=== PATIENT | male | born 1995 | race Caucasian/White ===

== ENCOUNTER 2016-06-13 04:06 | Emergency (ER) | payer MEDICAID ==
[~2016-06-13] VITALS: Ht 177.8 cm; Wt 70.5 kg
[2016-06-13] MEDS ORDERED: DIPH,PERTUSS(ACELL),TET VAC/PF 0.5 ML IM-VACC ONE ×2 (04:30→04:34)
[2016-06-13] MEDS ORDERED: CIPROFLOXACIN 500 MG TABLET ONE (04:58)
[2016-06-13] MEDS ORDERED: CIPROFLOXACIN 500 MG TABLET PO ONE (05:00)
[2016-06-13 05:44] VITALS: BP 119/80
== END 2016-06-13 05:49 | disposition home or self-care (01) ==
LOC: ED 05:43
DX: S91.331A Puncture wound without foreign body, right foot, initial encounter (principal); Z23 Encounter for immunization; W22.8XXA Striking against or struck by other objects, initial encounter; Y93.89 Activity, other specified; Y99.8 Other external cause status; Y92.89 Other specified places as the place of occurrence of the external cause
CPT/HCPCS: 90471; 90715

== ENCOUNTER 2016-06-25 10:19 | Emergency (ER) | payer MEDICAID ==
[~2016-06-25] VITALS: Ht 177.8 cm; Wt 73.0 kg
[2016-06-25] MEDS ORDERED: SODIUM CHLORIDE 0.9% 1,000ML IVBOLUS ONE (10:30)
[2016-06-25] MEDS ORDERED: ONDANSETRON 2MG/ML, 2ML IVPush ONE (10:30)
[2016-06-25] MEDS ORDERED: PLEASE ENTER HEIGHT AND WEIGHT MC SCH (10:30)
[2016-06-25] MEDS ORDERED: MAALOX/HYOSCYAMINE/LIDOCAINE 45 ML BOTTLE PO ONE (10:30)
[2016-06-25] MEDS ORDERED: FAMOTIDINE 20 MG/2 ML IVP ONE (10:30)
[2016-06-25] MEDS ORDERED: MORPHINE SULFATE 4 MG/ML, 1ML ONE (10:45)
[2016-06-25] MEDS ORDERED: MAALOX/HYOSCYAMINE/LIDOCAINE 45 ML BOTTLE ONE (10:45)
[2016-06-25] MEDS ORDERED: ONDANSETRON 2MG/ML, 2ML ONE (10:45)
[2016-06-25] MEDS ORDERED: FAMOTIDINE 20 MG/2 ML ONE (10:50)
[2016-06-25 10:57] LABS: ASPARTATE AMINO TRANSFERASE 25 U/L (15-37); BLOOD UREA NITROGEN 12 mg/dL (7-18)
[2016-06-25 11:09] LABS: DAU SCREEN DISCLAIMER
[2016-06-25 12:07] VITALS: BP 120/72
== END 2016-06-25 12:09 | disposition home or self-care (01) ==
LOC: EDBD 10:19 → ED 11:36
DX: K29.00 Acute gastritis without bleeding (principal); R10.13 Epigastric pain; R11.2 Nausea with vomiting, unspecified; F15.10 Other stimulant abuse, uncomplicated; Z72.89 Other problems related to lifestyle
CPT/HCPCS: 36415; 80053; 80307; 81003; 83690; 85025; 96361; 96374; 96375; 99285; J2405; J7030; S0028